=== PATIENT | female | born 1980 | race Caucasian/White ===

== ENCOUNTER 2023-03-29 12:33 | Emergency (ER) | payer MEDICAID ==
[~2023-03-29] VITALS: Ht 172.7 cm; Wt 77.3 kg
[2023-03-29 13:25] LABS: BASOPHILS # (AUTO) 0.1 X10'3 (0-0.2); BASOPHILS % (AUTO) 1.1 % (0-1); EOSINOPHILS % (AUTO) 0.3 % (0-6); HEMOGLOBIN 14.6 g/dl (12.0-16.0); LYMPHOCYTES # (AUTO) 1.8 X10'3 (1.1-4.8); MEAN CORPUSCULAR HEMOGLOBIN 34.3 PG (27.0-31.0); MEAN CORPUSCULAR HGB CONC 33.2 g/dL (33.0-36.5); MEAN CORPUSCULAR VOLUME 103.1 FL (78-98); MEAN PLATELET VOLUME 6.3 FL (7.4-10.4); MONOCYTES # (AUTO) 0.3 X10'3 (0-0.9); MONOCYTES % (AUTO) 4.1 % (2-12); NEUTROPHILS # (AUTO) 5.9 X10'3 (1.8-7.7); NEUTROPHILS % (AUTO) 72.5 % (42-75); PLATELET COUNT 305 X10'3 (140-440); RED BLOOD COUNT 4.27 X10'6 (4.20-5.60); RED CELL DISTRIBUTION WIDTH 15.5 % (11.5-14.5); WHITE BLOOD COUNT 8.1 X10'3 (4.5-11.0)
[2023-03-29 13:43] LABS: ALANINE AMINOTRANSFERASE 36 U/L (12-78); ALBUMIN 3.7 G/DL (3.4-5.0); ALKALINE PHOSPHATASE 77 IU/L (46-116); ANION GAP 19 (8-16); ASPARTATE AMINO TRANSFERASE 42 U/L (10-37); BILIRUBIN,TOTAL 0.6 MG/DL (0.1-1.0); BLOOD UREA NITROGEN 15 MG/DL (7-18); BUN/CREATININE RATIO 13.5 (10.0-20.0); CALCIUM 8.7 MG/DL (8.5-10.1); CHLORIDE 102 MMOL/L (99-107); CREATININE 1.11 MG/DL (0.40-0.90); GLUCOSE 102 MG/DL (70-104); POTASSIUM 3.6 MMOL/L (3.5-5.1); SODIUM 139 MMOL/L (135-145); TOTAL CARBON DIOXIDE 18.4 MMOL/L (24-32); TOTAL PROTEIN 7.4 G/DL (6.4-8.2); eGFR 53 ML/MIN
[2023-03-29 13:53] LABS: ETHANOL 0.323 GM/DL (0.0-0.010)
[2023-03-29 14:56] LABS: URINE HCG NEGATIVE (NEG)
[2023-03-29 15:00] LABS: CLARITY,URINE CLEAR (Clear); COLOR,URINE YELLOW (Yellow); GLUCOSE, URINE NEGATIVE (Neg); KETONES,URINE NEGATIVE (Neg); LEUKOCYTE ESTERASE ,URINE NEGATIVE (Neg); NITRITES, URINE NEGATIVE (Neg); OCCULT BLOOD,URINE MODERATE (Neg); PROTEIN,URINE NEGATIVE (Neg); UROBILINOGEN,URINE 0.2 E.U/dL (0.2-1.0)
[2023-03-29 15:06] LABS: URINE AMPHETAMINE SCREEN NEGATIVE (Neg); URINE BARBITUATE SCREEN NEGATIVE (Neg); URINE BENZODIAZEPINES SCREEN NEGATIVE (Neg); URINE CANNABINOID SCREEN NEGATIVE (Neg); URINE COCAINE SCREEN NEGATIVE (Neg); URINE METHADONE SCREEN NEGATIVE (Neg); URINE OPIATE SCREEN NEGATIVE (Neg); URINE PHENCYCLIDINE SCREEN NEGATIVE (Neg)
[2023-03-29 15:07] LABS: UA COLLECTION TYPE CLN CATCH MIDSTREAM
[2023-03-29 15:09] LABS: MUCUS STRANDS FEW /LPF (Neg); SQUAMOUS EPITHELIAL CELL,UR MODERATE /LPF (FEW)
[2023-03-29 15:11] LABS: BACTERIA,URINE 1+ /HPF (Neg); RBC,URINE 0-2 /HPF (0-2); WBC,URINE 0-4 /HPF (0-4)
[2023-03-29] MEDS ORDERED: ondansetron 4mg rapidly disintigrating tab PO ONE (19:25)
[2023-03-29] MEDS: LORazepam 1 MG tablet PO PRN (19:36)
--- NOTE | 2023-03-29 22:13 | NUR ---
Pt arrived on unit from [facility] at 1944. She asked to use the phone and paced back and forth in front of Nurses station. Pt denied any SI, she never said she was suicidal. She did not believe she was on a hold was going to leave. Explained to pt the 1798 hold and that she would be evaluated by [facility] in the AM. That she just needed to relax and stay her tonight that we had an order to give her Ativan to help her if she had Alcohol withdrawal symptoms. The pt seemed satisfied with this explanation. Continued to deny any SI. Asked to use phone to call her sister and tell her not to pick her up. Went to bed went to sleep and is sleeping at this time.
[2023-03-29] MEDS ORDERED: LEVO75TA7 PO (23:06)
[2023-03-30] MEDS: LORazepam 1 MG tablet PO PRN ×4 (00:33→14:51)
--- NOTE | 2023-03-30 00:34 | NUR ---
Pt awake. Feeling some anxiety no other s/s of ETOH withdrawal given 2mg Ativan. Pt states she has not been eating for a week only drinking alcohol. Given applesauce and crackers advised to a little bit and let staff know if she becomes nauseated.
--- NOTE | 2023-03-30 03:54 | NUR ---
Pt sleeping did not awaken when another pt had a period of yelling out.
[2023-03-30 05:43] VITALS: BP 137/74
--- NOTE | 2023-03-30 06:40 | NUR ---
Patient appears to be sleeping supine. No distress observed. Patient ambulatory to BR, steady gait about 30 minutes ago. Continue to monitor.
--- NOTE | 2023-03-30 08:16 | NUR ---
Patient picking at her food. No distress observed. Continue to monitor.
[2023-03-30] MEDS ORDERED: haloperidol 5mg tablet PO PRN (09:00)
[2023-03-30] MEDS ORDERED: thiamine 100mg tablet PO SCH ×2 (09:00→09:15)
[2023-03-30] MEDS ORDERED: folic acid 1mg tablet PO SCH (09:15)
[2023-03-30] MEDS ORDERED: levoTHYROXINE 75mcg tablet PO SCH (09:20)
[2023-03-30] MEDS ORDERED: multivitamins, therapeutics tablet PO SCH (09:20)
--- NOTE | 2023-03-30 09:38 | NUR ---
Met with patient in regards to alcohol use and to see if patient was interested in resources for treatment options. Patient is interested in outpatient resources. Patient would like to start medication to help with cravings. I talked to patient about getting a sponsor. I gave patient a card for [facility] to start Naltrexone. Patient has my card and will call me with any questions.
--- NOTE | 2023-03-30 10:32 | NUR ---
Patient visiting with friend. Patient wants to go home. Patient got her meds with her thiamine and vitamins one hour ago. RN would like patient to stay until 1600ish so she will get more meds on board to prevent withdrawal and not start up again with alcohol. Patient agreed to stay and [facility] will send patient home in a cab later this afternoon.
--- NOTE | 2023-03-30 12:25 | NUR ---
Pt at nurses station asking for PRN Ativan. Pt states she doesn't feel like she needs it, no visible ETOH withdrawal symptoms noted. Will continue to monitor.
--- NOTE | 2023-03-30 14:37 | NUR ---
Patient getting dressed to leave. RN called the taxi and they stated availability around 1545. Patient is not happy but we have no control. Continue to monitor.
--- NOTE | 2023-03-30 15:10 | NUR ---
RN gave patient Ativan for feeling anxious. Patient states she is going home and is not going to drink. Continue to monitor.
[2023-03-31] MEDS ORDERED: levoTHYROXINE 75mcg tablet PO SCH (08:00)
[2023-03-31] MEDS ORDERED: multivitamins, therapeutics tablet PO SCH (08:00)
== END 2023-03-30 16:30 | disposition home or self-care (01) ==
LOC: ER 12:34
DX: R45.851 Suicidal ideations (principal); Z20.822 Contact with and (suspected) exposure to COVID-19; F32.A Depression, unspecified; F10.929 Alcohol use, unspecified with intoxication, unspecified; F17.200 Nicotine dependence, unspecified, uncomplicated; F31.9 Bipolar disorder, unspecified
CPT/HCPCS: 36415; 80053; 80305; 80320; 81001; 81025; 84443; 85025; 87811; 99285